=== PATIENT | male | born 1985 | race Caucasian/White ===

== ENCOUNTER 2016-11-12 20:57 | Emergency (ER) | payer SELFPAY ==
[~2016-11-12] VITALS: Ht 175.2 cm; Wt 93.0 kg
[~2016-11-12 20:57] MED LIST: ACULAR 3 ML3 M1 OP; AMOXICILLIN500 MG PO; ANAPROX DS550 MG PO; AUGMENTIN 875 M1 TAB PO; CLARITIN10 MG PO; CLEOCIN150 MG PO; DAYPRO600 M1 PO; DICLOFENAC POTA50 MG PO; KEFLEX500 MG PO; MOTRIN400 MG PO; MOTRIN800 MG PO; NKHM; ROBAXIN750 MG PO; TOBRADEX 0.1%-0.5 ML OPH; TOBREX 5 ML5 ML OPH; TRAMADOL HCL50 MG PO; TRIMOX500 MG PO; ULTRAM50 MG PO; VICODIN 5/500 505 MG PO; VICODIN 500 MG-1 TAB PO; VICODIN ES 7501 TAB PO; VOLTAREN75 MG PO; ZITHROMAX Z PA250 MG PO
[2016-11-12] MEDS ORDERED: MEDROL DOSEPAK4 MG PO (21:11)
== END 2016-11-12 21:19 | disposition home or self-care (01) ==
LOC: ED 20:57
DX: T63.441A Toxic effect of venom of bees, accidental (unintentional), initial encounter (principal); M79.89 Other specified soft tissue disorders; F17.200 Nicotine dependence, unspecified, uncomplicated; Y92.9 Unspecified place or not applicable

== ENCOUNTER 2017-11-29 21:47 | Emergency (ER) | payer SELFPAY ==
[~2017-11-29] VITALS: Ht 177.8 cm; Wt 90.7 kg
[~2017-11-29 21:47] MED LIST changes: +MEDROL DOSEPAK4 MG PO
[2017-11-29] MEDS ORDERED: NAPROSYN500 MG PO (22:42)
[2017-11-29] MEDS ORDERED: CEPHALEXIN500 M1 PO (22:42)
== END 2017-11-29 23:00 | disposition home or self-care (01) ==
LOC: ED 21:47
DX: L73.2 Hidradenitis suppurativa (principal); F17.200 Nicotine dependence, unspecified, uncomplicated; Z79.899 Other long term (current) drug therapy

== ENCOUNTER 2018-09-22 19:31 | Inpatient (IN) | payer SELFPAY ==
[~2018-09-22] VITALS: Ht 177.8 cm; Wt 91.8 kg
--- NOTE | ~2018-09-22 | O ---
[place], [place] OPERATIVE NOTE NAME: MARY BENITO [facility] #: [id number] UNIT #: [id number] ROOM: 507 DOCTOR: CHRISTIAN MELO DPM BIRTHDATE: [birth year] DOS: 09/26/2018 PREOPERATIVE DIAGNOSIS: Abscess, left foot. POSTOPERATIVE DIAGNOSIS: Abscess, left foot. SURGERY: Incision and drainage of deep abscess, left foot. BLOOD LOSS: 4 mL. PACKING: Quarter inch plain packing. SURGEON: Christian Melo DPM. STEEL SASH ERECTOR: Chelsy Rose DPM. ANESTHESIA: General. COMPLICATIONS: None. PROCEDURE DETAILS: The patient was seen in preop area and the left foot was reevaluated. The abscess had progressed to worsening situation since his previous evaluation on Tuesday. There is still edema and erythema noted with pain overlying the fourth left interspace extending into the interspace between the fourth and fifth left toes. Discussed preoperatively with the patient and his family the surgery in details, postoperative recovery time, and potential risks and complications. The patient agreed and we proceeded with surgical intervention consisting of incision and drainage of the left foot. The patient brought to the operating room, placed on the operating table in supine position. Anesthesia administered per anesthesia department. Next, a 15 blade was utilized to incise the abscess overlying the dorsal fourth intermetatarsal space overlying the MPJ area. Purulent drainage was noted to emanate from the wound, which was much worse than his previous procedure performed Tuesday. A Regina elevator was utilized and the abscess extended to the dorsal fourth left MPJ extending into the fourth interspace down to the plantar foot. The abscess was drained at this time. There was approximately 6 mL of purulent drainage noted, which was also cultured. The area was inspected for further evidence of tracking and none was found. The area was copiously flushed with saline and the proximal incision was reapproximated in a horizontal mattress stitch manner with 3-0 Vicryl. Next, the remaining site was packed with quarter-inch plain packing and sterile compressive dressing consisting of Xeroform, 4 x 4s, Kerlix and Mitesh bandage was applied. The patient resumed previous orders, returned to the nursing unit and continued antibiotics per infectious disease. The patient tolerated the procedure and anesthesia well and left the OR with vital signs stable and neurovascular status intact. [place], [place] OPERATIVE NOTE NAME: MARY BENITO UNIT #: [id number] ROOM: 507 DOCTOR: CHRISTIAN MELO DPM BIRTHDATE: [birth year] CHRISTIAN MELO DPM CM:OPRECORD:OPERATIVE NOTE [id number] CHRISTIAN MELO DPM 09/26/18 1945 interface
--- NOTE | ~2018-09-22 | CON ---
[place], [place] REPORT OF CONSULTATION NAME: MARY BENITO [facility] #: [id number] UNIT #: [id number] ROOM: 507 DOCTOR: FLO MELO DPM BIRTHDATE: [birth year] DOS: 09/23/2018 SUBJECTIVE: The patient presents a 33-year-old male with chief complaint of swelling and infection of the left foot, the patient has had for the past week. The patient has been seen at the ED at [facility], was sent home with p.o. antibiotics. The patient was seen yesterday at the Emergency Room and was admitted. PAST MEDICAL HISTORY: Bee-sting, hidradenitis, infected dental caries, pulpitis. PAST SURGICAL HISTORY: None. SOCIAL HISTORY: Cigarette nicotine dependence. Denies illicit drug use or alcohol. ALLERGIES: None. LOWER EXTREMITY EXAMINATION: Pedal pulses palpable. Epicritic sensations intact. There is erythema with mild edema to the dorsal distal fourth left interspace MPJ. There is a small fluctuant abscess noted overlying the dorsal fourth left interspace incision and drainage with a 15 blade revealed approximately 1cc mL of purulent drainage. There is no apparent deep sinus tract. Erythema apparently has decreased since previous exam, was noted to encompass the dorsal distal lateral left foot. The results of the CT scan of the left foot revealed soft tissue swelling dorsal lateral aspect. No osseous findings. No signs of gas within the tissue. The patient's WBC has decreased to 11.0 today compared to 14.7 yesterday. The patient's lactic acid baseline was 1.1 yesterday. ASSESSMENT: Abscess, cellulitis, pain with edema dorsolateral, left foot. PLAN: Evaluation and management. Sterile prep with Betadine was performed, a 1 cm incision was made over the dorsal fourth left MPJ interspace area, approximately 1cc mL of purulent drainage was noted and was cultured. No apparent deep sinus tract was noticed at this time. The area was cleaned with saline and betadine gauze, Kerlix dressing was applied. Discussed with the patient. His WBC already decreased to 11 that I believe the abscess was resolved with the bedside procedure, but if the erythema and edema along with pain does not continue to decrease tomorrow that we may need to take him for further exploration in the operating room on Tuesday if warranted. I do not feel this will be necessary, but if deemed no further improvement by tomorrow, we may take the patient to the OR for a larger incision under anesthesia and deeper exploration of the soft tissue. Recommend Infectious Disease consultation and we will discuss the case with Dr. Rose and Dr. Chow. Dr. Rose will see the patient tomorrow. [place], [place] REPORT OF CONSULTATION NAME: MARY BENITO [facility] UNIT #: [id number] ROOM: 50 DOCTOR: FLO MELO DPM BIRTHDATE: [birth year] FLO MELO DPM CM:CONSTR:REPORT OF CONSULTATION 5 09/27/18725 interface
--- NOTE | ~2018-09-22 | CON ---
[place], [place] REPORT OF CONSULTATION [facility] #: [id number] UNIT #: [id number] ROOM: 507 DOCTOR: ISAK OCHOA,JUNE BIRTHDATE: [birth year] DOS: 09/24/2018 HISTORY OF PRESENT ILLNESS: The patient is a 33-year-old male who was admitted with left foot abscess and cellulitis. He has had a bedside I and D by Dr. Logan with Podiatry. Cultures from the foot are pending. He was admitted late on the . He was placed on Zosyn and vancomycin. Gram stain from the has no organisms. The patient troubles originally began about 10 days ago. He developed some pain in the left foot. After about 3-4 days, he developed some erythema and swelling. He was seen in the Emergency Room here. He is not sure what he was given at that point that was approximately 6 days ago. Two days later, the foot continued to worsen with swelling, pain and redness. He went to [place] and was seen in the Emergency Room and was given Bactrim and Keflex. The foot did not improve and continued to worsen, so he came to the ER on the . CAT scan showed swelling of the foot, but no foreign bodies or osseous lesions. He denies any fevers or chills at home. He tolerated the antibiotics. He was given without issue. He denies any prior trauma to the foot. He thinks he may have had some athlete's foot in the area that the abscess developed. He has had no prior skin abscesses or similar lesions. He has no history of diabetes and his hemoglobin A1c is 5.5. PAST MEDICAL HISTORY: He denies any significant past medical history. SOCIAL HISTORY: He is a smoker, approximately 1 pack per day. 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 He drinks approximately once a week. Denies any illicit drug use. FAMILY MEDICAL HISTORY: Not pertinent to chief complaint. ALLERGIES: No known drug allergies. CURRENT MEDICATIONS: Include vancomycin, meropenem, Lovenox, Protonix, Percocet, Restoril, Zofran, Milk of Mag. REVIEW OF SYSTEMS: As above in history of present illness. Pain in the left foot has improved since antibiotics and I and D. Again, no fevers or chills here or at home. No nausea, vomiting, diarrhea. No cough or shortness of breath. No rash or itch. No headache or dizziness. No chest pain or palpitations. Further review of systems is unremarkable. LABORATORY DATA: WBCs are down to 10.5 and they were 14.7 on admission. BUN 13, creatinine 0.96. Vancomycin trough 10.5. PHYSICAL EXAMINATION: VITAL SIGNS: Temperature 97.8, pulse 68, respirations 20, BP 124/66. GENERAL: A 33-year-old male, alert and oriented, in no acute distress. HEENT: Normocephalic. Pupils equal, round and reactive to light. Oropharynx is clear. No thrush. NECK: Supple. LUNGS: Clear to auscultation bilaterally. Respirations even and unlabored. [place], [place] REPORT OF CONSULTATION NAME: MARY BENITO UNIT #: [id number] ROOM: 507 DOCTOR: ISAK OCHOAJUNE BIRTHDATE: [birth year] HEART: Regular rhythm. No murmur appreciated. ABDOMEN: Soft, nondistended, nontender. EXTREMITIES: No edema or deformity. Left foot at the base of the fourth and fifth toes with erythema. Small wound with no active discharge, unable to express any purulence. Does have some tenderness, erythema and increased warmth, no fluctuance. SKIN: Otherwise, warm, dry, free of rashes. ASSESSMENT: Left foot small abscess and cellulitis, status post bedside drainage. PLAN: We will follow up on the cultures. Continue empiric antibiotics with vancomycin and Zosyn. It is possible that he had area of athlete's foot that provided access for bacterial entry. I would suspect possibly a Staph and causing the abscess. Follow up on cultures and adjust antibiotics accordingly. Would anticipate being able to discharge with oral antibiotics. ADDENDUM. I agree with the assessment and plan made by the nurse practitioner. I reviewed the labs and imaging and made the necessary changes in the note. JUNE GABRIELA PARISI Lucrecia William MD CM:CONSTR:REPORT OF CONSULTATION 1548 10/05/18 0522 interface
--- NOTE | ~2018-09-22 | PR ---
[place], [place] PROGRESS NOTE NAME: MARY BENITO [facility] #: [id number] UNIT #: [id number] ROOM: 507 DOCTOR: NGUYỄN DUMAS DPM BIRTHDATE: [birth year] DOS: 09/25/2018 SUBJECTIVE: This patient is seen for followup of abscess, dorsal left forefoot. The patient denies any trauma or injury. He denies being diabetic. The patient denies fever or chills. Denies nausea, vomiting or night sweats. He states he is eating well and admits to some mild pain in the foot. OBJECTIVE: Pedal pulses are palpable. Hair growth is present. Skin temperature is warm. CFT is less than 2 seconds to all digits. Sensation is grossly intact and symmetrical. Dorsal left forefoot just proximal to the fourth webspace has some localized edema and erythema with some tenderness noted to palpation. No expressible drainage. Still some mild increase in temperature noted. Erythema is about 2-3 cm surrounding the central area at the proximal webspace, left foot. LABORATORY DATA: White blood cell count is up to 11.6, patient is afebrile. ASSESSMENT: Cutaneous abscess, left foot, infection, left foot pain. PLAN: Evaluation and management. The patient just had his MRI recently and is not read yet. I discussed with him treatment will depend on what the MRI shows. If MRI is positive for abscess, he may need surgical incision and drainage of the area. If MRI is negative for abscess, then possibly discharge home on antibiotics, told him his treatment. Next step in treatment will depend on the results of the MRI. We will see what the MRI shows and follow up from there. The patient is given opportunity to ask questions and all questions were answered. NGUYỄN DUMAS DPM CM:PNTRANS [phone] NGUYỄN DUMAS DPM 09/25/182326 interface
[2018-09-22 19:31] VITALS: BP 120/78
[~2018-09-22 19:31] MED LIST changes: +CEPHALEXIN500 M1 PO; +NAPROSYN500 MG PO
[2018-09-22 20:25] LABS: BASO # 0.1 10*3/uL (0.0-0.1); BASO % 0.4 % (0.0-1.0); EOS # 0.3 10*3/uL (0.0-0.4); EOS % 1.8 % (1.0-4.0); LYMPH # 3.5 10*3/uL (1.3-4.4); LYMPH % 23.5 % (27.0-41.0); MEAN CELL VOLUME 91.6 fl (80.0-94.0); MEAN CORPUSCULAR HGB 31.9 pg (27.0-31.0); MEAN CORPUSCULAR HGB CONC 34.8 g/dl (33.0-37.0); NEUT # 9.8 10*3/uL (2.3-7.9); PLATELET COUNT AUTOMATED 355 10*3/uL (130-400); RED BLOOD COUNT 5.02 10*6/uL (4.50-5.90); RED CELL DISTRI WIDTH 12.6 % (0-14.5); WHITE BLOOD COUNT 14.7 10*3/uL (4.8-10.8)
[2018-09-22 20:37] LABS: BUN 17 mg/dl (7-24); CHLORIDE 107 mmol/L (98-107); SODIUM 141 mmol/L (136-145)
--- NOTE | 2018-09-22 22:00 | NUR ---
A 33, admitted to , under the services of JUMANA Sarabia DO with a diagnosis of ABSCESS. Chief complaint is FOOT PAIN. Patient arrived via wheel chair from ER. Monitor applied. Initial assessment completed. Vital signs taken and recorded. JUMANA SARABIA DO notified of admission to the unit. Orders received. See assessment for past medical history, medications and allergies. Patient and/or family oriented to unit. [facility]. Clothing/patient valuable form completed. YOSVANY WHITT
--- NOTE | 2018-09-22 22:19 | NUR ---
DR BO AT BEDSIDE
[2018-09-22] MEDS ORDERED: KEFLEX 500 MG E2 CAP PO (22:25)
[2018-09-22] MEDS ORDERED: NAPROXEN500 MG PO (22:26)
[2018-09-22] MEDS ORDERED: Bactrim 200 MG/30 ML PO (22:26)
[2018-09-22] MEDS ORDERED: NEXIUM 24HR20 M2 PO (22:27)
[2018-09-22 22:30] VITALS: BP 120/59
--- NOTE | 2018-09-22 23:22 | NUR ---
DR MCDANIEL AWARE OF CONSULT. NO ORDERS
--- NOTE | 2018-09-22 23:26 | NUR ---
MEDICATED WITH PRN PERCOCET FOR PAIN RATED 8/10 ON A 0/10 PAIN SCALE. WILL MONITOR
[2018-09-23] VITALS: BP 120/59
--- NOTE | 2018-09-23 04:53 | NUR ---
MEDICATED WITH PRN MORPHINE SLOW PUSH FOR C/O FOOT PAIN RATED 10/10 ON A 0/10 PAIN SCALE. STATES IT MADE HIM LIGHT HEADED. ZOSYN UP AND INFUSING PER ORDER. C/O ITCHINESS ALL OVER. DR BO MADE AWARE
--- NOTE | 2018-09-23 05:05 | NUR ---
MEDICATED WITH BENEDRYL PER ORDER FOR ITCHINESS
--- NOTE | 2018-09-23 05:23 | NUR ---
20CC OF THE ZOSYN INFUSED PRIOR TO TAKING IT DOWN PER ORDER
[2018-09-23 06:30] LABS: ALKALINE PHOSPHATASE 98 U/L (45-117); BUN 13 mg/dl (7-24); CHLORIDE 111 mmol/L (98-107); CHOLESTEROL 142 mg/dL (<200); CREATININE 0.96 mg/dL (0.70-1.30); HDL CHOLESTEROL 29 mg/dl (40-60); LDL CHOLESTEROL 70 mg/dL (9-159); PHOSPHOROUS 3.2 mg/dL (2.5-4.9); POTASSIUM 3.8 mmol/L (3.5-5.1); SGOT/AST 13 IU/L (3-35); SGPT/ALT 31 U/L (12-78); SODIUM 142 mmol/L (136-145); TOTAL PROTEIN 5.9 gm/dL (6.4-8.2); TRIGLYCERIDES 214 mg/dl (<150); VLDL CHOLESTEROL 43 mg/dL (6-40)
[2018-09-23 06:42] LABS: BASO # 0.1 10*3/uL (0.0-0.1); BASO % 0.5 % (0.0-1.0); EOS # 0.3 10*3/uL (0.0-0.4); EOS % 3.1 % (1.0-4.0); HEMATOCRIT 42.6 % (42.0-52.0); LYMPH # 3.9 10*3/uL (1.3-4.4); LYMPH % 35.7 % (27.0-41.0); MEAN CELL VOLUME 93.6 fl (80.0-94.0); MEAN CORPUSCULAR HGB 30.5 pg (27.0-31.0); MEAN CORPUSCULAR HGB CONC 32.6 g/dl (33.0-37.0); MEAN PLATELET VOLUME 9.9 fl (9.6-12.3); MONO % 9.2 % (3.0-9.0); NEUT # 5.7 10*3/uL (2.3-7.9); NEUT % 51.2 % (47.0-73.0); PLATELET COUNT AUTOMATED 291 10*3/uL (130-400); RED BLOOD COUNT 4.55 10*6/uL (4.50-5.90); RED CELL DISTRI WIDTH 12.6 % (0-14.5)
[2018-09-23 06:52] LABS: INTERNATIONAL NORM RATIO 0.9 (2.0-3.5)
[2018-09-23 06:58] LABS: HEMOGLOBIN 13.9 g/dl (14.0-18.0)
--- NOTE | 2018-09-23 08:00 | NUR ---
DR. MELO LANCED WOUND FOR WOUND CULTURE. CULTURE SENT. WOUND COVERED AND WRAPPED WITH CURLEX. PT C/O SEVERE PAIN AT RETRIEVAL OF CULTURE. REFUSED MORPHINE , CHOSE TYLENOL FOR RELIEF. PATIENT IS RESTING COMFORTABLY AT THIS TIME NO COMPLAINTS.
[2018-09-23 12:00] VITALS: BP 116/67
[2018-09-23 16:00] VITALS: BP 114/68
[2018-09-23 20:00] VITALS: BP 116/75
--- NOTE | 2018-09-23 21:50 | NUR ---
PRN PAIN MEDICATIONS GIVEN D/T PAIN 7/10 IN FOOT, WILL MONITOR AND REASSESS.
[2018-09-24] VITALS: BP 136/86
--- NOTE | 2018-09-24 01:06 | NUR ---
24 HR chart check completed.
[2018-09-24 04:00] VITALS: BP 130/76
[2018-09-24 08:00] VITALS: BP 132/70
--- NOTE | 2018-09-24 08:07 | NUR ---
PT RESTING IN BED. NO DISTRESS NOTED. WILL MONITOR CALL LIGHT WITHIN REACH
--- NOTE | 2018-09-24 08:55 | NUR ---
PT REQUESTED AND GIVEN TYLENOL FOR C/O FOOT PAIN. PT RATES PAIN 5/10 WILL MONITOR
--- NOTE | 2018-09-24 11:14 | NUR ---
PT REQUESTED AND GIVEN PERCOCET FOR C/O LE PAIN. PT RATES PAIN 8/10 WILL MONITOR
--- NOTE | 2018-09-24 11:50 | NUR ---
PERCOCET IS HELPING PER PT WILL MONITOR
--- NOTE | 2018-09-24 11:53 | NUR ---
DR VALDOVINOS ANSWERING SERVICE NOTIFIED OF CONSULT
[2018-09-24 12:00] VITALS: BP 124/66
[2018-09-24 16:00] VITALS: BP 113/78
[2018-09-24 17:41] LABS: BASO % 0.4 % (0.0-1.0); EOS # 0.3 10*3/uL (0.0-0.4); EOS % 2.3 % (1.0-4.0); HEMATOCRIT 43.9 % (42.0-52.0); HEMOGLOBIN 14.5 g/dl (14.0-18.0); LYMPH % 28.2 % (27.0-41.0); MEAN CELL VOLUME 92.4 fl (80.0-94.0); MEAN CORPUSCULAR HGB 30.5 pg (27.0-31.0); MEAN PLATELET VOLUME 9.4 fl (9.6-12.3); MONO # 0.7 10*3/uL (0.1-1.0); MONO % 6.9 % (3.0-9.0); NEUT # 6.6 10*3/uL (2.3-7.9); NEUT % 61.9 % (47.0-73.0); PLATELET COUNT AUTOMATED 305 10*3/uL (130-400); RED BLOOD COUNT 4.75 10*6/uL (4.50-5.90); RED CELL DISTRI WIDTH 12.4 % (0-14.5); WHITE BLOOD COUNT 10.7 10*3/uL (4.8-10.8)
[2018-09-24 20:00] VITALS: BP 130/78
--- NOTE | 2018-09-24 20:10 | NUR ---
PATIENT REPORTS PAIN 7/10 IN L FOOT, PRN MEDICATION GIVEN. WILL REASSESS.
--- NOTE | 2018-09-24 20:16 | NUR ---
24 HR chart check completed.
--- NOTE | 2018-09-24 21:00 | NUR ---
PRN PAIN MEDICATION EFFECTIVE PER PATIENT.
[2018-09-25] VITALS: BP 115/70
[2018-09-25 04:29] VITALS: BP 118/82
[2018-09-25 07:32] VITALS: BP 112/74
--- NOTE | 2018-09-25 08:39 | NUR ---
MARY BENITO [id number] Please refer to the physician's history and physical for past medical history, comorbid conditions, and allergies. Diagnosis: ABSCESS SEPSIS LEFT FOOT PAIN Fahad Score: 23,LOW OR NO RISK WOUND DESCRIPTIONS: Spoke with Dr. Pop regarding dressing intact to left foot. No strike through drainage noted. He stated podiatry is following patient and to keep dressing intact. Patient stated he will follow up with podiatry once he is discharged. Surface the patient is resting on: Isoflex SKIN PREVENTION RECOMMENDATION: 1. Pressure redistribution support surface as appropriate 2. Elevate heels 3. Remove boots/TEDS every shift and reapply 4. Head of bed 30 degrees as tolerated 5. Assess nutrition and hydration 6. Manage moisture 7. Avoid the use of containment devices while in bed 8. Use absorptive products on surfaces limit layers of linens on bed 9. Turn and reposition every 1-2 hours in bed and every 1 hour in chair as tolerated 10. Weight shifts every 15 minutes while up in chair 11. Offloading with pillows or device to keep heels elevated off bed 12. Monitor skin at least every shift 13. Inspect under medical devices twice a day WOUND TREATMENT RECOMMENDATIONS:
--- NOTE | 2018-09-25 09:23 | NUR ---
PATIENT TO MRI AT THIS TIME.
[2018-09-25 09:40] LABS: BASO # 0.1 10*3/uL (0.0-0.1); BASO % 0.5 % (0.0-1.0); EOS # 0.2 10*3/uL (0.0-0.4); EOS % 1.9 % (1.0-4.0); HEMATOCRIT 45.7 % (42.0-52.0); HEMOGLOBIN 15.3 g/dl (14.0-18.0); LYMPH # 3.1 10*3/uL (1.3-4.4); LYMPH % 26.5 % (27.0-41.0); MEAN CELL VOLUME 92.1 fl (80.0-94.0); MEAN CORPUSCULAR HGB 30.8 pg (27.0-31.0); MEAN CORPUSCULAR HGB CONC 33.5 g/dl (33.0-37.0); MEAN PLATELET VOLUME 9.5 fl (9.6-12.3); MONO # 0.9 10*3/uL (0.1-1.0); MONO % 7.4 % (3.0-9.0); NEUT # 7.4 10*3/uL (2.3-7.9); NEUT % 63.3 % (47.0-73.0); PLATELET COUNT AUTOMATED 303 10*3/uL (130-400); RED BLOOD COUNT 4.96 10*6/uL (4.50-5.90); RED CELL DISTRI WIDTH 12.2 % (0-14.5); WHITE BLOOD COUNT 11.6 10*3/uL (4.8-10.8)
[2018-09-25 09:52] LABS: CHLORIDE 105 mmol/L (98-107); SODIUM 138 mmol/L (136-145)
[2018-09-25 10:12] LABS: ALBUMIN 3.5 gm/dl (3.1-4.5); ALKALINE PHOSPHATASE 92 U/L (45-117); BUN 12 mg/dl (7-24); CREATININE 0.96 mg/dL (0.70-1.30); SGOT/AST 17 IU/L (3-35); SGPT/ALT 34 U/L (12-78)
--- NOTE | 2018-09-25 10:59 | NUR ---
PATIENT REFUSES APPLICATION OF SOLUTIONS SPECIALIST UPON RETURN FROM MRI PROCEDURE.
--- NOTE | 2018-09-25 11:03 | NUR ---
MEDICATED WITH PRN PO TYLENOL FOR LEFT FOOT PAIN.
[2018-09-25 12:00] VITALS: BP 129/89
--- NOTE | 2018-09-25 12:42 | NUR ---
PRN PO TYLENOL EFFECTIVE, PER PATIENT.
--- NOTE | 2018-09-25 14:18 | NUR ---
Sales Activity Manager in to talk to patient. Patient states lives at HOME with . There are 1 steps in the home. Physician: NONE WAS GIVEN LIST Pharmacy: [facility] [place] [facility] services: NONE Patient's level of ADLs: INDEPENDENT Patient has working utilities: YES DME: NONE Follow-up physician's appointment after d/c: WILL PICK FROM LIST PROVIDED AND MAKE APPOINTMENT Does patient want to access PORTAL?: YES Discharge plan LIVES AT HOME WITH HIS AND KIDS. PT IS INDEPENDENT IN CARE. PLANS TO RETURN HOME ON DISCHARGE. STATES HE WILL HAVE NO NEEDS. WILL CONTINUE TO FOLLOW. STATES HE WILL HAVE A RIDE HOME ON DISCHARGE.. BRANDAN RODRIGUEZ
--- NOTE | 2018-09-25 19:00 | NUR ---
PT AWAKE IN BED W/FAMILY AT BEDSIDE DURING BEDSIDE SHIFT REPORT. NO C/O VOICED. PT ENCOURAGED TO ELEVATE LLE. PT COMPLIANT. CALL LIGHT IN REACH.
[2018-09-25 20:00] VITALS: BP 123/77
--- NOTE | 2018-09-25 21:48 | NUR ---
PT MEDICATED W/PERCOCET FOR C/O LEFT FOOT PAIN 07/28. CALL LIGHT IN REACH.
[2018-09-26] VITALS (11 sets, daily range): BP systolic 98–138; BP diastolic 58–77
--- NOTE | 2018-09-26 11:08 | NUR ---
PATIENT TO OR BY BED.
--- NOTE | 2018-09-26 12:13 | NUR ---
PT CONTINUES TO DENY NEEDS ON DISCHARGE. WILL CONTINUE TO FOLLOW.
--- NOTE | 2018-09-26 13:54 | NUR ---
RETURNED FROM SURGERY BY BED, FAMILY IS AT BEDSIDE, PATIENT IS ALERT AND ORIENTED. DRESSING TO LEFT FOOT DRY AND INTACT, RESUMING DIET.
--- NOTE | 2018-09-26 14:26 | NUR ---
MEDICATED WITH PRN PO PERCOCET.
--- NOTE | 2018-09-26 15:42 | NUR ---
PERCOCET EFFECTIVE PER PATIENT. SITTING UP IN BED EATING DINNER.
--- NOTE | 2018-09-26 19:00 | NUR ---
PT AWAKE IN BED W/FAMILY AT BEDSIDE DURING BEDSIDE SHIFT REPORT. NO C/O VOICED AT PRESENT TIME.
--- NOTE | 2018-09-26 19:55 | NUR ---
PT MEDICATED W/MORPHINE FOR C/O LT HEEL PAIN 12/28. ICE APPLIED TO HEEL. PT C/O MILD NAUSEA W/MORPHINE IVP BUT REFUSING ZOFRAN AT THIS TIME. FAMILY AT BEDSIDE. CALL LIGHT IN REACH.
--- NOTE | 2018-09-26 20:30 | NUR ---
PT STATES THAT MORPHINE WAS EFFECTIVE TO TAKE THE MAJORITY OF THE PAIN AWAY IN HIS FOOT.
--- NOTE | 2018-09-26 22:12 | NUR ---
PT MEDICATED W/PERCOCET PER REQUEST FOR C/O LT HEEL PAIN. LLE ELEVATED ON PILLOW. CALL LIGHT IN REACH.
[2018-09-27] VITALS: BP 116/71
[2018-09-27 07:38] VITALS: BP 120/60
[2018-09-27 09:37] LABS: BASO % 0.1 % (0.0-1.0); HEMATOCRIT 47.4 % (42.0-52.0); LYMPH # 2.3 10*3/uL (1.3-4.4); LYMPH % 10.9 % (27.0-41.0); MEAN CELL VOLUME 90.8 fl (80.0-94.0); MEAN CORPUSCULAR HGB 30.7 pg (27.0-31.0); MEAN CORPUSCULAR HGB CONC 33.8 g/dl (33.0-37.0); MEAN PLATELET VOLUME 9.4 fl (9.6-12.3); MONO # 1.1 10*3/uL (0.1-1.0); MONO % 5.4 % (3.0-9.0); NEUT # 17.5 10*3/uL (2.3-7.9); NEUT % 83.2 % (47.0-73.0); PLATELET COUNT AUTOMATED 388 10*3/uL (130-400); RED BLOOD COUNT 5.22 10*6/uL (4.50-5.90); WHITE BLOOD COUNT 21.1 10*3/uL (4.8-10.8)
[2018-09-27 10:02] LABS: ALBUMIN 3.8 gm/dl (3.1-4.5); ALKALINE PHOSPHATASE 108 U/L (45-117); BUN 14 mg/dl (7-24); CHLORIDE 106 mmol/L (98-107); POTASSIUM 4.1 mmol/L (3.5-5.1); SGOT/AST 110 IU/L (3-35); SGPT/ALT 63 U/L (12-78); SODIUM 138 mmol/L (136-145); TOTAL PROTEIN 7.8 gm/dL (6.4-8.2)
--- NOTE | 2018-09-27 11:12 | NUR ---
ADMINISTERED PRN NORCO ORDERED PER PATIENT REQUEST, SEE EMAR, FOR PROPHALACTIC PAIN PRIOR TO DRESSING CHANGE. WILL CONTINUE TO MONITOR CALL LIGHT IN REACH. HEMSPN
[2018-09-27 11:20] VITALS: BP 141/79
--- NOTE | 2018-09-27 12:30 | NUR ---
PT STATES HE IS GOING HOME TODAY AFTER THEY TAKE PACKING OUT ONE WAY OR ANOTHER. WILL CONTINUE TO FOLLOW.
[2018-09-27] MEDS ORDERED: VIBRAMYCIN100 MG PO (14:08)
[2018-09-27] MEDS ORDERED: OMNICEF300 MG PO (14:08)
[2018-09-27] MEDS ORDERED: Percocet 325 MG1 TAB PO (14:08)
--- NOTE | 2018-09-27 15:04 | NUR ---
PRESCRIPTIONS SENT TO PHARMACY WITH INSTRUCTIONS TO PATIENT TO PICK THEM UP. IV DISONTINUED. PT WHEELED VIA WHEELCHAIR OFF FLOOR TO PRIVATE CAR. DISCHARGE INSTRUCTIONS AND FOLLOW UP CARE DISCUSSED.
[2018-09-27 15:09] LABS: ACID FAST SPEC PROCESSING Direct Inoculation (.)
[2018-11-08 10:08] LABS: ACID FAST CULTURE Negative (.)
== END 2018-09-27 15:04 | disposition home or self-care (01) | DRG 854 ==
LOC: ED 19:31 → EDHOLD 21:08 → 5E 21:08
PROVIDERS: Emergency Medicine; Internal Medicine; Nurse Practitioner; Podiatrist; Podiatrist Primary Podiatric Medicine; Student in an Organized Health Care Education/Training Program; ADMIT Family Medicine
PROC: 0S9N0ZZ Drainage of Left Metatarsal-Phalangeal Joint, Open Approach (ICD-10-PCS; principal; 2018-09-23)
PROC: 0S9N0ZZ Drainage of Left Metatarsal-Phalangeal Joint, Open Approach (ICD-10-PCS; 2018-09-26)
DX: A41.9 Sepsis, unspecified organism (principal); L02.612 Cutaneous abscess of left foot; L03.116 Cellulitis of left lower limb; F17.210 Nicotine dependence, cigarettes, uncomplicated; K21.9 Gastro-esophageal reflux disease without esophagitis; E78.5 Hyperlipidemia, unspecified; R73.9 Hyperglycemia, unspecified; E66.3 Overweight; Z83.3 Family history of diabetes mellitus; Z71.6 Tobacco abuse counseling; Z80.9 Family history of malignant neoplasm, unspecified; Z79.899 Other long term (current) drug therapy; Z68.29 Body mass index [BMI] 29.0-29.9, adult

== ENCOUNTER → 2021-03-12 | Outpatient (CLI) | payer BC ==
[~2021-03-12] MED LIST changes: +Bactrim 200 MG/30 ML PO; +KEFLEX 500 MG E2 CAP PO; +NAPROXEN500 MG PO; +NEXIUM 24HR20 M2 PO; +OMNICEF300 MG PO; +Percocet 325 MG1 TAB PO; +VIBRAMYCIN100 MG PO
== END | disposition home or self-care (01) ==
LOC: COVID19 17:02
PROVIDERS: ATTEND Podiatrist Foot & Ankle Surgery
DX: U07.1 COVID-19 (principal)

== ENCOUNTER 2024-04-30 12:52 | Emergency (ER) | payer BC ==
[~2024-04-30] VITALS: Ht 177.8 cm; Wt 104.3 kg
[2024-04-30] MEDS ORDERED: LIDOCAINE 1 EA PATCH T ONE (15:25)
[2024-04-30] MEDS ORDERED: LIDOCAINE PAIN1 EACH T (15:32)
== END 2024-04-30 15:49 | disposition home or self-care (01) ==
LOC: ED 12:52
DX: S20.211A Contusion of right front wall of thorax, initial encounter (principal); F17.210 Nicotine dependence, cigarettes, uncomplicated; Z88.8 Allergy status to other drugs, medicaments and biological substances; Z88.1 Allergy status to other antibiotic agents; W01.0XXA Fall on same level from slipping, tripping and stumbling without subsequent striking against object, initial encounter; Y93.89 Activity, other specified; Y92.89 Other specified places as the place of occurrence of the external cause; Y99.8 Other external cause status